=== PATIENT | female | born 1995 | race American Indian/Alaskan Native ===

== ENCOUNTER 2017-11-11 20:11 | Emergency (ER) | payer SELFPAY ==
[2017-11-11 21:17] VITALS: BP 109/57
--- NOTE | 2017-11-12 00:43 | Emergency Department Report ---
ED Female HPI - General Chief complaint: Urogenital-Female Stated complaint: vaginal bleeding Time Seen by Provider: 11/12/17 00:28 Source: patient Mode of arrival: Ambulatory Limitations: No Limitations - History of Present Illness Initial comments: 22-year-old -Indian female comes to the emergency room reporting she did to [id number] test in inconclusive results. Patient reports to me that she had one had a faint line up positive. Patient comes in complaining of brief vaginal spotting yesterday. She denies any abdominal pain. She reports her last menstrual period was 10/11/2017. She is 3 para 1. She has no vaginal discharge. Her primary care provider is Dr. Urvashi Lazo. She has no known drug allergies currently takes no medications. Complaint: vaginal bleeding (vaginal spotting yesterday) - Related Data Home Medications Medication Instructions Recorded Confirmed Last Taken No Known Home Medications [No 11/11/17 11/11/17 Unknown Reported Home Medications] Allergies Allergy/AdvReac Type Severity Reaction Status Date / Time cranberry Allergy Hives Verified 11/11/17 21:17 ED Review of Systems ROS: Stated complaint: vaginal bleeding Other details as noted in HPI Constitutional: denies: chills, fever Eyes: denies: eye pain, eye discharge, vision change ENT: denies: ear pain, throat pain Respiratory: denies: cough, shortness of breath, wheezing Cardiovascular: denies: chest pain, palpitations Endocrine: no symptoms reported Gastrointestinal: denies: abdominal pain, nausea, diarrhea Genitourinary: abnormal menses. denies: urgency, dysuria, discharge Musculoskeletal: denies: back pain, joint swelling, arthralgia Skin: denies: rash, lesions Neurological: denies: headache, weakness, paresthesias Psychiatric: denies: anxiety, depression Hematological/Lymphatic: denies: easy bleeding, easy bruising ED Past Medical Hx - Past Medical History Previous Medical History?: No - Surgical History Past Surgical History?: No - Social History Smoking Status: Never Smoker Substance Use Type: None - Medications Home Medications: Home Medications Medication Instructions Recorded Confirmed Last Taken Type No Known Home Medications [No 11/11/17 11/11/17 Unknown History Reported Home Medications] ED Physical Exam - General Limitations: No Limitations General appearance: alert, in no apparent distress - Head Head exam: Present: atraumatic, normocephalic - Eye Eye exam: Present: normal appearance - ENT ENT exam: Present: mucous membranes moist - Neck Neck exam: Present: normal inspection - Extremities Exam Extremities exam: Present: normal inspection, full ROM - Neurological Exam Neurological exam: Present: alert, oriented X3 - Psychiatric Psychiatric exam: Present: agitated - Skin Skin exam: Present: intact, normal color ED Course Vital Signs 11/11/17 21:11 Temperature 98.8 F Pulse Rate 78 Respiratory 16 Rate Blood Pressure 109/57 O2 Sat by Pulse 100 Oximetry ED Medical Decision Making - Medical Decision Making Patient was evaluated by this provider in fast track. Patient appears to be upset. She starts getting her clothes on and and refused exam. Discussed the patient that blood work was performed that showed a negative test. Last menstrual was 10/11/2017. This time she should be having her next period. Patient is to follow up with her primary care provider for further evaluation. Critical care attestation.: If time is entered above; I have spent that time in minutes in the direct care of this critically ill patient, excluding procedure time. ED Disposition Clinical Impression: Physically well but worried Disposition: DC-01 TO HOME OR SELFCARE Is pt being admited?: No Does the pt Need Aspirin: No Condition: Stable Referrals: TONA PRITCHARD MD [Primary Care Provider] - 3-5 Days HUGO LAZO MD [Referring] - 3-5 Days
[2017-11-12] MEDS ORDERED: ULTRAM PO ONE (01:10)
== END 2017-11-12 00:50 | disposition home or self-care (01) ==
LOC: ED 20:11
DX: Z71.1 Person with feared health complaint in whom no diagnosis is made (principal); Z91.018 Allergy to other foods
CPT/HCPCS: 36415; 84703; 99283